=== PATIENT | male | born 1970 | race Caucasian/White ===

== ENCOUNTER 2020-08-26 11:19 | Emergency (ER) | payer OTHER ==
[2020-08-26] MEDS ORDERED: NAPROSYN500 MG PO (13:11)
== END 2020-08-26 13:28 | disposition home or self-care (01) ==
LOC: ER1 11:19
DX: S83.92XA Sprain of unspecified site of left knee, initial encounter (principal); J44.9 Chronic obstructive pulmonary disease, unspecified; F17.200 Nicotine dependence, unspecified, uncomplicated; X50.1XXA Overexertion from prolonged static or awkward postures, initial encounter; Y92.69 Other specified industrial and construction area as the place of occurrence of the external cause; Y99.0 Civilian activity done for income or pay
CPT/HCPCS: 73564; 96372; 99283; J1885